=== PATIENT | male | born 1955 | race Two or more races ===

== ENCOUNTER 2018-04-17 00:26 | Emergency (ER) | payer OTHER ==
[~2018-04-17] VITALS: Ht 177.8 cm; Wt 120.2 kg
--- NOTE | 2018-04-17 00:30 | NUR ---
PT BIBRA AFTER SYNCOPE EPISODE AT HOME. PT HIT HEAD ON TOILET AND HAS SMALL LAC ON HEAD. PT WAS FOUND DIAPHORETIC AND HYPOTENSIVE AND COMPLAINING OF NECK PAIN. RA GAVE NS BOLUS LEFT AC 18G AND PUT PT IN NECK BRACE. PT AAOX4, VSS, DENIES SOB OR CHEST PAIN. PT PLACED ON MONITOR, WAITING MD EVALUATION
--- NOTE | 2018-04-17 00:32 | NUR ---
MD AT BEDSIDE FOR EVALUATION
--- NOTE | 2018-04-17 00:40 | NUR ---
COAL HAULER OPERATOR AT BEDSIDE FOR BLOOD DRAW
--- NOTE | 2018-04-17 00:47 | NUR ---
CALLED RADIOLOGY FOR CT
--- NOTE | 2018-04-17 00:50 | NUR ---
PT BROUGHT BY RADIOLOGY FOR CT
[2018-04-17 00:54] LABS: BASOPHILS % (AUTO) 0.3 % (0.0-2.0); EOSINOPHILS % (AUTO) 1.7 % (0.0-6.0); HEMATOCRIT 44 % (39-51); HEMOGLOBIN 14.2 g/dL (13.5-17.5); LYMPHOCYTES # (AUTO) 1.7 /CMM (0.8-4.8); LYMPHOCYTES % (AUTO) 23.5 % (20.0-44.0); MEAN CORPUSCULAR HGB CONC 33 g/dl (31.0-36.0); MEAN CORPUSCULAR VOLUME 88 fL (80-96); MONOCYTES # (AUTO) 0.4 /CMM (0.1-1.30); MONOCYTES % (AUTO) 5.9 % (2.0-12.0); NEUTROPHILS # (AUTO) 5.1 /CMM (1.8-8.9); NEUTROPHILS % (AUTO) 68.6 % (43.0-81.0); PLATELET COUNT (AUTO) 193 /CMM (150-450); RDW COEFFICIENT OF VARIATION 13.8 (11.5-15.0); RED BLOOD CELL COUNT(AUTO) 4.94 MIL/uL (4.5-6.0); WHITE BLOOD COUNT (AUTO) 7.4 K/uL (4.3-11.0)
[2018-04-17] MEDS ORDERED: IV NS 0.9% 1,000 ML BAG IV ONE (01:00)
[2018-04-17 01:04] LABS: CALCIUM, SERUM 8.6 mg/dL (8.5-10.1); CARBON DIOXIDE 26 mmol/L (21-32); CHLORIDE 104 mmol/L (98-107); CREATININE 1.2 mg/dL (0.6-1.3); GLUCOSE 200 mg/dL (74-106); POTASSIUM 4.2 mmol/L (3.5-5.1); SODIUM SERUM 141 mmol/L (136-145); UREA NITROGEN, BLOOD 20 mg/dL (7-18)
--- NOTE | 2018-04-17 01:05 | NUR ---
PT UNABLE TO TOLERATE POSITION FOR CT SCAN, AWARE.
--- NOTE | 2018-04-17 01:07 | NUR ---
PT AND FAMILY MEMBER AT BEDSIDE REQUESTING TO REMOVE HARD CERVIAL COLLAR. INFORMED PT AND FAMILY MEMBER RISKS AND BENEFITS. PT VERBALIZED UNDERSTANDING. PT KEPT HARD CERVICAL COLLAR ON
[2018-04-17 01:12] LABS: TROPONIN I < 0.017 ng/mL (0.00-0.056)
[2018-04-17] MEDS ORDERED: MORPHINE SULFATE INJ 2 MG/ML DISP.SYRIN IV ONE ×2 (01:30→04:00)
[2018-04-17] MEDS ORDERED: MORPHINE SULFATE INJ 4 MG/ML DISP.SYRIN ONE ×2 (01:30→03:58)
--- NOTE | 2018-04-17 01:45 | NUR ---
PT BROUGHT BY RADIOLOGY FOR CT
[2018-04-17 01:50] LABS: INR 1.02 (0.87-1.13)
--- NOTE | 2018-04-17 02:01 | NUR ---
PT RETURNED FROM CT
--- NOTE | 2018-04-17 02:15 | NUR ---
PT RESTING IN BED. AAOX4. NO ACUTE DISTRESS NOTED AT THIS TIME. PT PLACED ON MONITOR. FAMILY AT BEDSIDE. WILL CONTINUE TO MONITOR
--- NOTE | 2018-04-17 02:22 | NUR ---
USHA VARELA TALKING TO RADIOLOGIST REGARDING CT RESUTL.
--- NOTE | 2018-04-17 02:43 | NUR ---
JUAN C MOTT CALLED AND SPOKE TO [facility]. CLNICALS FAXED REQUESTED.
--- NOTE | 2018-04-17 02:50 | NUR ---
IRENA SILVESTRE AND SPOKE TO [facility] NURSE. CLINICALS FAXED REQUESTED
[2018-04-17] MEDS ORDERED: TDAP [DIPH/PERTUSSIS/TET] 0.5 ML VIAL IM ONE ×2 (03:00→03:03)
--- NOTE | 2018-04-17 03:04 | NUR ---
CALLED [facility] AND SPOKE TO [facility]. STATES "NO NEURO ICU BEDS"
--- NOTE | 2018-04-17 03:05 | NUR ---
ER MD SPOKE TO DR. SONG FROM [facility] AND ACCEPTED PT. [facility] TO ARRANGE FOR CCT TRANSPORT PER ER .
--- NOTE | 2018-04-17 03:10 | NUR ---
REPORT GIVEN TO [facility] BUSTER ANDERSON, INFO FAXED REQUESTED TO [phone]
--- NOTE | 2018-04-17 03:11 | NUR ---
CALLED [facility] AND SPOKE TO TRICIA. WILL CALLED [facility] DO[facility].
[2018-04-17 03:18] LABS: APPEARANCE,URINE CLEAR (CLEAR); BILIRUBIN,URINE NEGATIVE (NEGATIVE); BLOOD, URINE NEGATIVE Ery/uL (NEGATIVE); COLOR,URINE ORANGE (YELLOW); KETONES,URINE NEGATIVE (NEGATIVE); LEUKOCYTE ESTERASE ,URINE NEGATIVE (NEGATIVE); NITRITE, URINE NEGATIVE (NEGATIVE); PH,URINE 5.5 (5.0-8.0); PROTEIN,URINE NEGATIVE (NEGATIVE); UGLUCOSE NEGATIVE (NEGATIVE); UROBILINOGEN,URINE 0.2 EU/dL (0.2)
--- NOTE | 2018-04-17 03:19 | NUR ---
KALA FROM [facility] CALL BACK AND STATED "OUR NEUROSURGEON WILL NOT ACCEPT A CASE UNLESS IT'S A CONSULT FROM [facility]". INFORMED
--- NOTE | 2018-04-17 03:23 | NUR ---
ER TALKING TO [facility] MD MEJIA REGARDING PT.
--- NOTE | 2018-04-17 03:52 | NUR ---
[facility] AT BEDSIDE FOR TRANSPORTATION. REPORT GIVEN TO CHELI GOINS FOR [place].
[2018-04-17 03:53] VITALS: BP 123/82
[2018-04-17 04:23] LABS: BACTERIA,URINE Rare /HPF (None Seen); RBC,URINE 0-2 /HPF (0-2); SQUAMOUS EPITHELIAL CELL,UR Rare /HPF (None Seen); WBC,URINE 0-2 /HPF (0-3)
== END 2018-04-17 04:14 | disposition short-term general hospital (02) ==
LOC: ER 00:28
DX: S12.300A Unspecified displaced fracture of fourth cervical vertebra, initial encounter for closed fracture (principal); S12.400A Unspecified displaced fracture of fifth cervical vertebra, initial encounter for closed fracture; S01.01XA Laceration without foreign body of scalp, initial encounter; I10 Essential (primary) hypertension; Z87.442 Personal history of urinary calculi; X58.XXXA Exposure to other specified factors, initial encounter; Y93.89 Activity, other specified; Y92.89 Other specified places as the place of occurrence of the external cause; Y99.8 Other external cause status
CPT/HCPCS: 36415; 70450; 71045; 72125; 80048; 81001; 84484; 85025; 85730; 90471; 90715; 93005; 96361; 96374; 96376; 99285; A4606; J2270 ×2; J7030; 81000-TC; Z7610